=== PATIENT | male | born 1990 | race Caucasian/White ===

== ENCOUNTER 2017-04-17 16:19 | Outpatient (CLI) | payer OTHER ==
--- NOTE | 2017-04-17 18:02 | MRI Report ---
EXAM: LEFT KNEE MRI WITHOUT CONTRAST EXAM DATE: 04/17/2017 05:20 PM. CLINICAL HISTORY: Pain in left knee. COMPARISON: None. TECHNIQUE: Multiplanar, multisequence T1-weighted and fluid-sensitive sequences of the knee without c ontrast. Other: None. FINDINGS: Bones: No fractures or subluxations. No marrow edema. No bone lesions. Articular Cartilage: Unremarkable. Medial Meniscus: The medial meniscus is intact. Lateral Meniscus: The lateral meniscus is intact. Cruciate Ligaments: The anterior and posterior cruciate ligaments are intact. There is a [id number] erate sized ganglion within and arising from the anterior cruciate ligament. The overall size of the ganglion is approximately 0.7 cm medial to lateral by 2.8 cm AP by 1.3 cm superior to inferior. Collateral Ligaments: The medial collateral and lateral collateral ligamentous structures are intact. Tendons: The quadriceps, patellar, semimembranosus, and popliteus tendons are unremarkable. Musculature: No edema or fatty atrophy. Other: No effusion. No popliteal cyst. No loose bodies. The medial and lateral retinacula are intact . The subcutaneous tissues and fat pads are unremarkable. IMPRESSION: 1. Zvrfq-[id number]-smhfhukd size ganglion within and arising from the anterior cruciate ligament. The crucia te ligaments are intact. 2. Otherwise, unremarkable MRI of the left knee. [facility] MUSCULOSKELETAL RADIOLOGY SECTION Referring Provider Line: [phone] SITE ID: [id number]
== END 2017-04-17 16:20 | disposition home or self-care (01) ==
LOC: DI 16:19
PROVIDERS: ATTEND Anesthesiology Pain Medicine
DX: M67.462 Ganglion, left knee (principal)